=== PATIENT | male | born 1945 | race Caucasian/White ===

== ENCOUNTER 2021-04-14 15:15 | Outpatient (CLI) | payer MEDICARE, BC, SELFPAY ==
--- NOTE | 2021-04-14 15:22 | US_ITS ---
WS: [id number] ULTRASOUND SOFT TISSUES LEFT leg. HISTORY: DISCOLORATION OF SKIN LLE COMPARISON: None available. TECHNIQUE: 2-D and color Doppler imaging is submitted. Ultrasound in the area of discoloration along the LEFT leg. No underlying mass or abnormality is iden tified. There is no edema. US/US soft tissue/extremity [id number] IMPRESSION: Negative ultrasound LEFT leg in the site of concern.
== END 2021-04-14 15:16 | disposition home or self-care (01) ==
LOC: RAD 15:21
PROVIDERS: PCP Nurse Practitioner Family; Visit Provider Nurse Practitioner Family
DX: L81.9 Disorder of pigmentation, unspecified (principal)
CPT/HCPCS: 76882